=== PATIENT | female | born 1970 | race Caucasian/White ===

== ENCOUNTER 2023-09-21 15:54 | Emergency (ER) | payer OTHER, SELFPAY ==
[2023-09-21 16:02] VITALS: BP 101/60; PULSE 115; RESP 20; TEMP 37.2; O2SAT 95
--- NOTE | 2023-09-21 16:27 | ED.URI ---
HPI - URI/Sore Throat General Chief Complaint: Upper Respiratory Infection Stated Complaint: sinus/back aches Time Seen by Provider: 09/21/23 16:10 Source: patient Mode of arrival: ambulatory Limitations: no limitations History of Present Illness HPI Narrative: Kerrie is a 52-year-old female patient presenting to the clinic today with complaints of fever, chills, nasal congestion, body aches, sneezing, and cough x2 days. States her highest fever was 103. She denies any known exposure to any COVID, flu, or strep MD elicited complaint: cough, rhinorrhea and nasal congestion Related Data Home Medications Medication Instructions Recorded Confirmed albuterol sulfate 90 mcg/actuation inhalation 09/21/23 aerosol inhaler ergocalciferol (vitamin D2) 1,250 09/21/23 mcg (50,000 unit) capsule fluticasone fur. 100 mcg-umeclid inhalation 09/21/23 62.5 mcg-vilant 25 mcg inhalat.powder (Trelegy Ellipta) ipratropium 0.5 mg-albuterol 3 mg ml inhalation 09/21/23 (2.5 mg base)/3 mL nebulization soln rosuvastatin 10 mg tablet mg 09/21/23 Allergies Allergy/AdvReac Type Severity Reaction Status Date / Time No Known Allergies Allergy Verified 09/21/23 16:13 Review of Systems Review of Systems: Pertinent positives per HPI. Patient denies any rash, headache, visual changes, dizziness, shortness of breath, chest pain, palpitations, nausea, vomiting, diarrhea, constipation, abdominal pain, or any urinary issues. PMFSH Comments At the time of my signature, I reviewed and agree with the nursing past medical, surgical, social, and family history. There is no relevant family history pertinent to the patient complaint. Exam Narrative: General: Well-developed, well nourished, in no apparent distress Head: Normocephalic, atraumatic Eyes: Pupils equally round and reactive to light bilaterally, EOM intact, sclera and conjunctive clear, no discharge, lids normal Ears: TMs intact and congested, ear canals clear, no drainage, grossly hearing normal. Nose: Nares patent, clear nasal discharge, no inflammation, no sinus tenderness. Mouth: Oral pharynx without lesions or masses, good dentition, MMM. Neck: Supple, trachea midline, no enlargement of anterior or posterior cervical nodes, no thyroid masses or goiter palpable. Cardio: Regular rate and rhythm, s1 and s2 normal, no murmur appreciated. Resp: Clear to auscultation bilaterally, no rhonchi, rales, wheezing or rubs Course Course Emergency Course: Portions of this record may have been created with voice recognition software. Level of Care: Express Care Visit Vital Signs Vital signs: Vital Signs Temperature 37.2 C 09/21/23 16:02 Pulse Rate 115 H 09/21/23 16:02 Respiratory Rate 20 09/21/23 16:02 Blood Pressure 101/60 09/21/23 16:02 Pulse Oximetry 95 09/21/23 16:02 Oxygen Delivery Room Air 09/21/23 16:02 Temperature 37.2 C 09/21/23 16:02 Pulse Rate 115 H 09/21/23 16:02 Respiratory Rate 20 09/21/23 16:02 Blood Pressure 101/60 09/21/23 16:02 Pulse Oximetry 95 09/21/23 16:02 Oxygen Delivery Room Air 09/21/23 16:02 Vital signs reviewed MDM - URI/Sore Throat MDM Narrative Medical decision making narrative: At the time of visit patient is resting comfortably on the exam table. Patient appears to be nontoxic. cOVID and flu test were performed and were negative in the clinic today. I suspect patient has URI/viral syndrome. Supportive measures were discussed with the patient she voiced understanding discharge instructions agrees to treatment plan. Return precautions were reviewed with the patient Differential Diagnosis Differential diagnosis: Likely upper respiratory infection, otitis media, sinusitis, viral infection, bronchitis, influenza, pharyngitis and other (COVID) Discharge Plan Discharge Clinical Impression: Viral infection Upper respiratory infection Qualifiers: URI type: unspecified URI Brandan
== END 2023-09-21 16:42 | disposition home or self-care (01) ==
PROVIDERS: Emergency Provider Nurse Practitioner Family; PCP Family Medicine
DX: B34.9 Viral infection, unspecified (principal); J02.9 Acute pharyngitis, unspecified; Z20.822 Contact with and (suspected) exposure to COVID-19; E78.00 Pure hypercholesterolemia, unspecified; J44.9 Chronic obstructive pulmonary disease, unspecified
CPT/HCPCS: 87426; 87804; 99213; C9803; G0463